=== PATIENT | female | born 1950 | race Caucasian/White ===

== ENCOUNTER → 2016-06-20 | Outpatient (CLI) | payer OTHER ==
[~2016-06-20] VITALS: Ht 160 cm; Wt 56.7 kg
[~2016-06-20] MED LIST: ADULT LOW DOSE81 MG PO; ALEVE220 MG PO; ANTIINFLAMMATORY; CALCIUM 500 MG1 EAC1 PO; CLARITIN10 MG PO; FISHOIL PO; KLONOPIN PO; LORATIDINE 10 M10 M1 PO; MOBIC15 MG PO; OMEPRAZOLE20 M2 PO; OXYBUTYNIN 5 MG5 M1 PO; PROTONIX40 M1 PO; SIMVASTATIN40 MG PO; ZOCOR20 MG PO
--- NOTE | ~2016-06-20 | P ---
[facility] [place] [address] PROCEDURE REPORT Name: TERESA MONTALVO Room #: REG QUITAJasmina Deleon#: [id number] Admission: 06/20/16 Attend Phys: Florentino Larry MD Discharge: Date of : 48 Report #: [id number] THIS REPORT FOR: //name// CC: Florentino HITCHCOCK BRIEF HISTORY: The patient is a 65-year-old woman with history of reflux disease, on PPI, which is generally controlled. However, she has had persistent nausea and episodes of vomiting. She does take Meloxicam. PREOPERATIVE DIAGNOSIS: Persistent nausea. POSTOPERATIVE DIAGNOSIS: Mild erythematous gastritis. MEDICATIONS: Deep sedation with propofol per anesthesia. SPECIMEN: None. ESTIMATED BLOOD LOSS: None. PROCEDURE: EGD. FINDINGS: Prior to propofol sedation, procedure of upper endoscopy was discussed with the patient as well as potential risks, benefits, and complications. She indicates she understands and desires to proceed. With the patient in left lateral decubitus position, the [employer] video endoscope was inserted in the cervical esophagus under direct vision without difficulty. Examination of this organ through its entire length revealed normal esophageal mucosa down the squamocolumnar junction. Squamocolumnar junction was inspected and noted to be unremarkable. No ulcers or erosions were seen. No evidence of esophagitis. A hiatus hernia was not seen. Scope was advanced in the stomach, was examined on end view as well as retroflexed views. There was erythema in the antrum, which we noted in the past, previous biopsies were negative for H. pylori, those were not repeated today. There were no retained solids or liquids in the stomach. There was no evidence of outlet obstruction. On retroflexion, no abnormalities were seen. The pylorus, duodenal bulb and postbulbar sweep were inspected and noted to be within normal limits. At that point, the scope was slowly withdrawn and careful circumferential views confirmed the above findings. The patient tolerated the procedure well. CONDITION OF THE PATIENT UPON DISCHARGE: Following procedure, the patient drowsy and prepared for colonoscopy. INSTRUCTIONS TO THE PATIENT AND FAMILY AT THE TIME OF DISCHARGE: No evidence of gastritis or ulcer disease. I do not find endoscopic evidence of gastroparesis [address] [address] PROCEDURE REPORT Name: TERESA MONTALVO [facility] Room #: REG [facility]..#: [id number] Admission: 06/20/16 Attend Phys: Florentino Larry MD Discharge: Date of : 48 Report #: [id number] or gastric outlet obstruction. Meloxicam potentially , we will discuss with the patient and also have her obtain a gastric emptying study. She will return to our office to follow up with nurse practitioner if symptoms persist. We will proceed with colonoscopy at this time for rectal bleeding. <ELECTRONICALLY SIGNED> By: Florentino Larry MD 06/24/16 1224 0934 1323 Florentino Larry MD /nt
--- NOTE | ~2016-06-20 | P ---
[facility] [place] [address] PROCEDURE REPORT Name: TERESA MONTALVO Room #: REG [id number] Admission: 06/20/16 Attend Phys: Florentino Larry MD Discharge: Date of : 48 Report #: [id number] THIS REPORT FOR: //name// CC: Florentino HITCHCOCK DATE OF SERVICE: 06/20/2016 BRIEF HISTORY: The patient is a 65-year-old woman with rectal bleeding, usually bright red blood per rectum. PREOPERATIVE DIAGNOSIS: Rectal bleeding. POSTOPERATIVE DIAGNOSIS: Mild sigmoid diverticulosis coli. MEDICATIONS: Deep sedation with propofol per anesthesia. SPECIMEN: None. ESTIMATED BLOOD LOSS: None. PROCEDURE: Colonoscopy to cecum and terminal ileum. FINDINGS: Prior to propofol sedation, procedure of colonoscopy discussed with the patient as well as potential risks and its complications. She indicates she understands and desires to proceed. DESCRIPTION OF PROCEDURE: With the patient in left lateral decubitus position, digital examination was completed which revealed no abnormalities. Subsequently, the [employer] video colonoscope was introduced into the rectum and advanced under direct vision to the cecum. Done with minimal difficulty. The cecum was identified by the ileocecal valve and the appendiceal orifice. I was able to visualize the distal segment of the terminal ileum, which was inspected and noted to be unremarkable. At that point, the scope was slowly withdrawn and careful circumferential views obtained including retroflexing the scope in the ascending colon. Upon slow withdrawal of the scope, the prep was noted to be generally good. There were some residual seed material and overall, reasonably good views were obtained. Mucosa normal limits, normal vascular pattern, normal light reflex. As we withdrew the scope, no mucosal abnormalities were seen. No bleeding lesions were seen. No neoplastic lesions were seen. In the sigmoid colon, there were a few diverticula, but extensive diverticular disease was not seen. The scope was withdrawn in the rectum. Upon retroflexion, no abnormalities were seen. She reports she has hemorrhoids, but I did not see significant hemorrhoidal disease today. Scope was withdrawn. The patient tolerated the procedure well. [facility] [address] [place] [address] PROCEDURE REPORT Name: TERESA MONTALVO [facility] Room #: REG [facility].#: [id number] Admission: 06/20/16 Attend Phys: Florentino Larry MD Discharge: Date of : 48 Report #: [id number] CONDITION OF THE PATIENT UPON DISCHARGE: Following procedure, the patient drowsy, aroused and conversant and will be discharged home when fully ambulatory. INSTRUCTIONS TO THE PATIENT AND FAMILY AT THE TIME OF DISCHARGE: I do not see any bleeding lesions neoplastic lesions. For colorectal screening, she is to return in 10 years. As far as her rectal bleeding, she may have some intermittent fissuring, suggest local treatment with a hemorrhoidal cream with 1% hydrocortisone. If symptoms persist, she is to return to the office for followup. She will otherwise follow up with Martha Quispe, nurse practitioner. Last colonoscopy was about 5 years ago. Withdrawal time from the cecum was 14 minutes. <ELECTRONICALLY SIGNED> By: Florentino Larry MD 06/24/16 1224 1007 1344 Florentino Larry MD /nt
== END ==
LOC: GI 08:13
DX: K62.5 Hemorrhage of anus and rectum (principal); K57.30 Diverticulosis of large intestine without perforation or abscess without bleeding; K29.60 Other gastritis without bleeding; K21.9 Gastro-esophageal reflux disease without esophagitis; E78.5 Hyperlipidemia, unspecified; G47.33 Obstructive sleep apnea (adult) (pediatric); M81.0 Age-related osteoporosis without current pathological fracture; N32.81 Overactive bladder; G25.81 Restless legs syndrome; E78.00 Pure hypercholesterolemia, unspecified; M19.90 Unspecified osteoarthritis, unspecified site
CPT/HCPCS: 62110; 62900

== ENCOUNTER → 2016-09-04 | Outpatient (CLI) | payer OTHER ==
--- NOTE | ~2016-09-04 | 2DMMODE ---
[facility] [address] [place] [address] 2 D/M-MODE ECHOCARDIOGRAM Name: KATIATERESA GIULIANA Room #: REG [facility]#: [id number] Admission: 09/04/16 Attend Phys: Clement Brown Discharge: Date of : 48 Date of Service: 09/04/16 1447 Report #: [id number] THIS REPORT FOR: //name// APPROVED REPORT Study performed: 09/04/2016 12:49:05 EXAM: Comprehensive 2D, Doppler, and color-flow Echocardiogram Patient Location: Out-Patient Other Information Study Quality: Adequate/Technically difficult due to implants and lung artifact. Indications Dizziness and Vertigo 2D Dimensions RVDd: 30.94 mm LVEF(%): 52.78 (>50%) IVSd: 8.82 (7-11mm) LVOT Diam: 19.55 (18-24mm) LVDd: 43.28 mm PWd: 9.08 (7-11mm) Ascending Ao: 25.95 (22-36mm) LVDs: 31.64 (25-40mm) Aortic Root: 27.55 mm Barlow's LVEF: 52.78 % Volumes Left Atrial Volume (Systole) Single Plane 4CH: 27.29 mL Single Plane 2CH: 24.21 mL LA ESV Index: 17.00 mL/m2 Aortic Valve AoV Peak Geovanni.: 1.44 m/s AO Peak Gr.: 8.35 mmHg LVOT Max P.22 mmHg LVOT Max V: 1.14 m/s KADEEM Vmax: 2.37 cm2 Mitral Valve E/A Ratio: 1.2 MV Decel. Time: 213.47 ms MV E Max Geovanni.: 0.85 m/s MV A Geovanni.: 0.70 m/s MV PHT: 61.91 ms IVRT: 78.43 ms [facility] [place] [place] [address] 2 D/M-MODE ECHOCARDIOGRAM Name: TERESA MONTALVO [facility] Room #: REG [facility]#: [id number] Admission: 09/04/16 Attend Phys: Clement Brown Discharge: Date of : 48 Date of Service: 09/04/16 1447 Report #: [id number] Pulmonary Valve PV Peak Geovanni.: 0.90 m/s PV Peak Gr.: 3.22 mmHg Pulmonary Vein P Vein S: 0.50 m/s P Vein D: 0.34 m/s P Vein S/D Ratio: 1.47 Tricuspid Valve TR Peak Geovanni.: 2.30 m/s RAP Estimate: 5.00 mmHg TR Peak Gr.: 21.13 mmHg RVSP: 26.00 mmHg Left Ventricle The left ventricle is normal size. There is normal LV segmental wall motion. There is normal left ventricular wall thickness. Left ventricular systolic function is normal. LVEF is 60%. The left ventricular diastolic function is normal. Right Ventricle The right ventricle is normal size. The right ventricular systolic function is normal. Atria The left atrium size is normal. The right atrium size is normal. Aortic Valve The Aortic valve is mildly sclerotic. No aortic regurgitation is present. There is no aortic valvular stenosis. Mitral Valve The mitral valve is normal in structure. Mild mitral regurgitation. No evidence of mitral valve stenosis. Tricuspid Valve The tricuspid valve is normal in structure. There is mild tricuspid regurgitation. The right atrial pressure is estimated at 5 mmHg. Estimated PAP is 26mmHg. Pulmonic Valve Pulmonic valve is not well visualized. Trace pulmonic regurgitation. Great Vessels The aortic root is normal in size. The ascending aorta is normal in [address] [address] 2 D/M-MODE ECHOCARDIOGRAM Name: TERESA MONTALVO [facility] Room #: REG CL Helder#: [id number] Admission: 09/04/16 Attend Phys: [facility] Discharge: Date of : 48 Date of Service: 09/04/16 1447 Report #: [id number] size. IVC is normal in size and collapses >50% with inspiration. Pericardium There is no pericardial effusion. <Conclusion> The left ventricle is normal size. LVEF is 60%. The Aortic valve is mildly sclerotic. The mitral valve is normal in structure. Mild mitral regurgitation. The tricuspid valve is normal in structure. There is mild tricuspid regurgitation. The right atrial pressure is estimated at 5 mmHg. Estimated PAP is 26mmHg. Pulmonic valve is not well visualized. Trace pulmonic regurgitation. <ELECTRONICALLY SIGNED> By: Skip Carlisle MD 09/04/16 1447 1447 1447 Skip Carlisle MD /INF
== END ==
LOC: CV 13:16
DX: R42 Dizziness and giddiness (principal)

== ENCOUNTER → 2017-09-17 | Outpatient (CLI) | payer OTHER | LOC: NUC 06:00 | DX: M81.0 Age-related osteoporosis without current pathological fracture (principal); M85.89 Other specified disorders of bone density and structure, multiple sites; Z78.0 Asymptomatic menopausal state ==

== ENCOUNTER → 2020-12-21 | Outpatient (CLI) | payer OTHER | LOC: NUC 09:47 | PROVIDERS: ATTEND Nurse Practitioner | DX: M81.0 Age-related osteoporosis without current pathological fracture (principal); N91.2 Amenorrhea, unspecified ==